=== PATIENT | female | born 1985 | race Caucasian/White ===

== ENCOUNTER → 2017-08-03 | Outpatient (CLI) | payer OTHER ==
[~2017-08-03] MED LIST: TORADOL 10 MG T10 MG PO
== END | disposition home or self-care (01) ==
LOC: LITH 07:19
DX: N20.0 Calculus of kidney (principal); Z98.890 Other specified postprocedural states; Z88.8 Allergy status to other drugs, medicaments and biological substances; Z98.51 Tubal ligation status